=== PATIENT | female | born 1990 | race African-American/Black ===

== ENCOUNTER 2022-10-19 15:09 | Emergency (ER) | payer OTHER ==
[~2022-10-19] VITALS: Ht 160 cm; Wt 68.0 kg
[2022-10-19 16:02] LABS: BASOPHILS % 0.6 % (0.0-2.0); EOSINOPHILS % 2.6 % (0.0-5.0); HEMOGLOBIN. 14.3 g/dL (12.0-16.0); LYMPHOCYTES % 32.4 % (20.0-50.0); MEAN CORPUSCULAR HEMOGLOBIN 28.7 pg (28.0-32.0); MEAN CORPUSCULAR VOLUME 82.2 fL (81.0-99.0); MEAN PLATELET VOLUME 8.5 fl (7.4-10.4); MONOCYTES % 7.8 % (2.0-8.0); NEUTROPHILS % 56.6 % (40.0-76.0); PLATELET 271 x1000/uL (130-400); RED BLOOD CELL COUNT 4.99 mill/uL (4.2-5.4); RED CELL DISTRIBUTION WIDTH 13.3 % (11.6-14.6)
[2022-10-19 16:10] LABS: CHLORIDE 107 mEq/L (98-107)
[2022-10-19 19:24] VITALS: BP 136/72
[2022-10-19 19:25] LABS: CLARITY URINE CLEAR (CLEAR); COLOR URINE YELLOW (YELLOW); KETONES URINE NEGATIVE (NEGATIVE); LEUKOCYTE ESTERASE URINE 1+ (NEGATIVE); NITRITE URINE NEGATIVE (NEGATIVE); OCCULT BLOOD URINE 3+ (NEGATIVE); PROTEIN URINE NEGATIVE (NEGATIVE); SPECIFIC GRAVITY URINE 1.018 (1.005-1.030)
== END 2022-10-19 19:25 | disposition home or self-care (01) ==
LOC: ER 15:09
DX: O20.0 Threatened abortion (principal); Z3A.01 Less than 8 weeks gestation of pregnancy
CPT/HCPCS: 36415; 76801; 80053; 81003; 81025; 84702; 85025; 86850; 86900; 99284

== ENCOUNTER 2024-10-29 18:33 | Emergency (ER) | payer OTHER ==
[~2024-10-29] VITALS: Ht 160 cm; Wt 68.0 kg
[2024-10-29 18:34] VITALS: O2SAT 97
[2024-10-29 18:36] VITALS: TEMP 36.8; O2SAT 97
[2024-10-29 20:26] VITALS: BP 136/92; PULSE 72; RESP 16
[2024-10-29] MEDS: IBUPROFEN 600MG TABLET PO ONE (20:26)
[2024-10-29] MEDS: LIDOCAINE HCL/PF 1% 10 MG/ML 5ML VIAL INFIL ONE (20:30)
[2024-10-29] MEDS ORDERED: IBUP-2029 MT (21:03)
[2024-10-29] MEDS ORDERED: CEPH500C2 MT (21:03)
== END 2024-10-29 21:40 | disposition home or self-care (01) ==
LOC: ER 18:33
DX: S61.211A Laceration without foreign body of left index finger without damage to nail, initial encounter (principal); Z79.899 Other long term (current) drug therapy; X58.XXXA Exposure to other specified factors, initial encounter; Y93.89 Activity, other specified; Y92.89 Other specified places as the place of occurrence of the external cause; Y99.8 Other external cause status
CPT/HCPCS: 12004; 99283; J2003; Z7610